=== PATIENT | male | born 1985 | race Caucasian/White ===

== ENCOUNTER → 2022-02-18 | Outpatient (CLI) | payer OTHER, SELFPAY ==
--- NOTE | 2022-02-18 13:13 | NEURO ---
NCS and/or EMG Patient Report Ordering Doctor: Sneha Chan DATE OF SERVICE: 02/18/22 Tru presents for electrodiagnostic testing of the lower limbs. He reports leg weakness and pain bilaterally. He has lower back pain. Electrodiagnostic findings: Peroneal motor nerve demonstrates normal distal latency, amplitude and conduction velocity bilaterally. Normal tibial motor response bilaterally. Normal peroneal and tibial F wave bilaterally. H reflex within normal limits. Sensory responses are normal. Needle EMG, muscles tested in the lower limbs showed no evidence of denervation with normal motor unit action potentials. Electrodiagnostic impression: This is a normal electrodiagnostic study of the lower limbs. There is no electrodiagnostic evidence for peripheral neuropathy or lumbosacral radiculopathy.
== END | disposition home or self-care (01) ==
LOC: PSN 09:02
PROVIDERS: PCP Physician Assistant Medical; Referring Provider Physician Assistant Medical; Visit Provider Physician Assistant Medical
DX: M47.817 Spondylosis without myelopathy or radiculopathy, lumbosacral region (principal); M51.26 Other intervertebral disc displacement, lumbar region; M48.061 Spinal stenosis, lumbar region without neurogenic claudication
CPT/HCPCS: 95886; 95911